=== PATIENT | male | born 1980 | race Caucasian/White ===

== ENCOUNTER 2020-10-10 17:10 | Emergency (ER) | payer OTHER ==
[~2020-10-10] VITALS: Ht 167.6 cm; Wt 81.2 kg
--- NOTE | ~2020-10-10 | EMS ---
[address] [address] EMS Patient Care Report Name: SEKOU BARROS Room #: DEP EMY Garcia#: [id number] Admission: 10/10/20 Attend Phys: Discharge: 10/10/20 Date of : [birth year] Report #: [id number] THIS REPORT FOR: //name// Report Transmitted: 10/14/2020 09:55 EMS Care Summary [place], [place]/[facility] Incident [id number] @ 10/10/2020 16:20 Incident Location [facility] / [place] [address] Patient SEKOU BARROS Male, 40 Years 1980 Patient Address [address] [place] [address] Patient History Depression, Patient Allergies No known allergies, Patient Medications Cipro, Chief Complaint Alcohol Use & Abrasion to Forehead Disposition Transported No Lights/[place] Dispatch Reason Overdose/Poisoning/Ingestion Transported To [facility] Narrative Dispatched to the scene of a male constitution party with slurred speech and drooling. Upon arrival, met PD and they stated patient had fallen and hit his head. Patient reportedly tripped over the guardrail and skinned his forehead on the rocks. Patient denied any loss of consciousness, denied any neck or back pain, and [address] [address] EMS Patient Care Report Name: SEKOU BARROS Room #: DEP [facility]#: [id number] Admission: 10/10/20 Attend Phys: Discharge: 10/10/20 Date of : [birth year] Report #: [id number] denied any thinners. Patient was assisted to the ambulance and secured to the cot. An ALS assessment was performed and vitals were monitored. Patient was calm and cooperative until PD left then patient stated he was going to run out of the ambulance and released his seat belts. I offered patient an easy ride to the hospital or we could have PD restrain him to the cot. Patient said, "I'm calling your bullshit" and would not return to the cot. PD returned to the scene and secured patient's left arm to the cot and patient's right arm was kerlixed to the cot. Patient rested comfortably while en route to [place]. Upon hospital arrival, patient was taken in on the cot, moved himself to the hospital bed, bed rails were raised, and patient care was transferred to the receiving nurse. Initial Vitals @16:41P: 106,R: 18,BP: 133/76,Pain: 0/10,GCS: 14,SpO2: 97,Revised Trauma: 12, @16:32P: 98,R: 18,BP: 138/79,Pain: 0/10,GCS: 14,Glucose: 112,SpO2: 97,Revised Trauma: 12, Assessments @16:30MENTAL:Confused,Person Oriented,Event Oriented,Time Oriented,SKIN:HEENT:Head/Face: Other,Neck/Airway: No Abnormalities,LUNG SOUNDS:General: No Abnormalities,ABDOMEN:General: No Abnormalities,PELVIS//GI:No Abnormalities,EXTREMITIES:Capillary Refill: Right Upper: < 2 Sec,Left Arm: No Abnormalities,Right Arm: No Abnormalities,Left Leg: No Abnormalities,Right Leg: No Abnormalities,PULSE:Radial: 2+ Normal,NEURO:No Abnormalities,@16:41MENTAL:Time Oriented,Event Oriented,Confused,Person Oriented,SKIN:No Abnormalities,HEENT:Head/Face: Other,Eyes: No Abnormalities,Neck/Airway: No Abnormalities,LUNG SOUNDS:General: No Abnormalities,Left Upper: No Abnormalities,Right Upper: No Abnormalities,Left Lower: No Abnormalities,Right Lower: No Abnormalities,ABDOMEN:General: No Abnormalities,Left Upper: No Abnormalities,Right Upper: No Abnormalities,Left Lower: No Abnormalities,Right Lower: No Abnormalities,PELVIS//GI:No Abnormalities,EXTREMITIES:Left Arm: No Abnormalities,Right Arm: No Abnormalities,Left Leg: No Abnormalities,Right Leg: No Abnormalities,PULSE:NEURO:No Abnormalities, Impression Laceration/Abrasion/Hematoma (minor surface trauma) Procedures @16:30ALS AssessmentResponse: UnchangedSucceeded@16:31C-Spine ClearanceResponse: Unchanged Timeline 15:38,Call Received 15:38,Dispatch Notified 16:20,Dispatched [address] [address] EMS Patient Care Report Name: SEKOU BARROS Room #: [facility] EMY Garcia#: [id number] Admission: 10/10/20 Attend Phys: Discharge: 10/10/20 Date of : [birth year] Report #: [id number] 16:20,En Route 16:29,On Scene 16:30,At Patient 16:30,ALS Assessment,Response: UnchangedSucceeded, 16:31,C-Spine Clearance,Response: Unchanged 16:32,BP: 138/79 M,PULSE: 98,RR: 18 R,SPO2: 97 Ox,ETCO2: ,B,PAIN: 0,GCS: 14, 16:41,BP: 133/76 M,PULSE: 106,RR: 18 R,SPO2: 97 Ox,ETCO2: ,BG: ,PAIN: 0,GCS: 14, 16:51,Depart Scene 17:06,At Destination 17:30,Call Closed Disclaimer v1.1 Copyright 2020 [employer] This EMS Care Summary contains data elements from the applicable legal record (which may be displayed differently). It is designed to provide pertinent information for the following purposes: continuity of care, clinical quality, and state data reporting. The complete legal record is available to ED staff and administrators of the receiving hospital in [employer] [facility]'s Patient Tracker. All data is provided "as is."
[2020-10-10 17:12] VITALS: BP 132/81
== END 2020-10-10 18:27 | disposition home or self-care (01) ==
LOC: ER 17:10
DX: S00.81XA Abrasion of other part of head, initial encounter (principal); S60.512A Abrasion of left hand, initial encounter; S60.511A Abrasion of right hand, initial encounter; S80.212A Abrasion, left knee, initial encounter; S80.211A Abrasion, right knee, initial encounter; F10.129 Alcohol abuse with intoxication, unspecified; Z88.2 Allergy status to sulfonamides; W18.39XA Other fall on same level, initial encounter; Y93.89 Activity, other specified; Y92.89 Other specified places as the place of occurrence of the external cause; Y99.8 Other external cause status